=== PATIENT | male | born 1980 | race Caucasian/White ===

== ENCOUNTER 2025-06-04 17:07 | Emergency (ER) | payer MEDICARE ==
[~2025-06-04] VITALS: Ht 175.3 cm; Wt 105.2 kg
[2025-06-04 19:42] LABS: BASOPHILS % 0.8 % (0.0-1.0); EOSINOPHILS % 2.0 % (0.0-6.0); LYMPHOCYTES % 12.2 % (18.0-39.1); MONOCYTES % 6.5 % (4.4-11.3); NEUTROPHILS % 78.3 % (38.7-80.0); RED CELL DISTRIBUTION WIDTH 16.7 % (11.7-14.4)
[2025-06-04 20:05] LABS: INR 1.13
[2025-06-04 20:14] LABS: EST GLOMERULAR FILTRATION RATE 30.0 ML/MIN (>=60)
[2025-06-04 20:46] VITALS: PULSE 63; RESP 16; TEMP 98.1; O2SAT 98
[2025-06-04 21:31] VITALS: BP 123/84; PULSE 71; RESP 18; TEMP 98.3
== END 2025-06-04 21:15 | disposition home or self-care (01) ==
LOC: ER 17:20
DX: R11.0 Nausea (principal); N18.6 End stage renal disease; Z99.2 Dependence on renal dialysis; I50.9 Heart failure, unspecified; I25.10 Atherosclerotic heart disease of native coronary artery without angina pectoris; Z89.512 Acquired absence of left leg below knee
CPT/HCPCS: 36415; 71045; 80053; 83735; 84484; 85025; 85610; 85730; 93005; 99284